=== PATIENT | female | born 2000 | race Two or more races ===

== ENCOUNTER 2020-08-23 06:48 | Emergency (ER) | payer OTHER ==
[~2020-08-23] VITALS: Ht 160 cm; Wt 110.0 kg
[2020-08-23] MEDS ORDERED: CEPH500T PO (07:23)
--- NOTE | 2020-08-23 07:24 | PHYS DOC ---
General Adult EDM: Chief Complaint: INSECT BITE HPI: HPI: Patient is a 20-year-old female coming in for a rash on her right anterior thigh. States about 3 days ago she had what she thought was a "pimple" and popped it. Now has noticed increasing area of redness and pain. Denies any systemic complaints. No significant medical issues, denies possibility of . Review of Systems: Review of Systems: All other systems within normal limits except for as noted in the HPI Physical Exam: PE: Constitutional: Well developed, well nourished, no acute distress, non-toxic appearance. [] HENT: Normocephalic, atraumatic, bilateral external ears normal, nose normal. [] Eyes: PERRLA, conjunctiva normal, no discharge. [] Neck: No rigidity, supple, no stridor. [] Cardiovascular: Regular rate and rhythm, brisk cap refill [] Lungs & Thorax: Non labored symmetric respirations, no tachypnea or respiratory distress [] Abdomen: Soft, nondistended. Skin: Warm, dry, approximately 5 to 6 cm diameter area of induration and erythema to right anterior thigh, central ulcerated lesion. Back: Unremarkable Extremities: No deformities, range of motion grossly intact, no lower extremity edema [] Neurologic: Alert and oriented X 3, no focal deficits noted. [] Psychologic: Affect normal, judgement normal, mood normal. [] EKG: EKG: [] Radiology/Procedures: Radiology/Procedures: [] Heart Score: C/O Chest Pain: No Risk Factors: Risk Factors: DM, Current or recent (<one month) smoker, HTN, HLP, family history of CAD, obesity. Risk Scores: Score 0 - 3: 2.5% MACE over next 6 weeks - Discharge Home Score 4 - 6: 20.3% MACE over next 6 weeks - Admit for Clinical Observation Score 7 - 10: 72.7% MACE over next 6 weeks - Early Invasive Strategies Course & Med Decision Making: Course & Med Decision Making Will start on antibiotics for cellulitis likely secondary to infected insect bite. Small area of purplish color in the central part. Discussed follow-up precautions for possible bite recluse bite. Gricelda Disclaimer: Gricelda Disclaimer: This electronic medical record was generated, in whole or in part, using a voice recognition dictation system. Departure Departure: Impression: Primary Impression: Cellulitis of right thigh Disposition: HOME / SELF CARE / HOMELESS Condition: STABLE Referrals: PCP,NO (PCP) Patient Instructions: Cellulitis Scripts Cephalexin (CEPHALEXIN) 500 Mg Tablet 1 TAB PO TID for antibiotic, #30 TAB Prov: ABHIJIT SCHWAB MD 08/23/20 ABHIJIT SCHWAB MD August 23, 2020 07:24
[2020-08-23 07:35] VITALS: BP 146/84
== END 2020-08-23 07:35 | disposition home or self-care (01) ==
LOC: ER 06:48
DX: L03.115 Cellulitis of right lower limb (principal)
CPT/HCPCS: 99283-25